=== PATIENT | male | born 1955 | race Caucasian/White ===

== ENCOUNTER 2022-12-28 10:26 | Emergency (ER) | payer OTHER, MEDICARE, MEDICAID ==
[2022-12-28] MEDS ORDERED: Sodium Chloride 0.9% 10 ML Syringe FLUSH PRN (10:41)
[2022-12-28 11:00] LABS: HEMATOCRIT 42.5 % (39.0-49.0); HEMOGLOBIN 14.3 g/dL (13.1-16.8); MEAN CORPUSCULAR HEMOGLOBIN 30.8 pg (28.2-33.3); MEAN CORPUSCULAR HGB CONC 33.6 g/dL (31.7-36.0); MEAN CORPUSCULAR VOLUME 91.4 fL (84.0-98.0); RED BLOOD CELL COUNT 4.65 M/uL (4.33-5.41); WHITE BLOOD CELL COUNT,WBC 7.2 K/uL (4.0-10.2)
[2022-12-28 11:01] LABS: BASOPHILS ABSOLUTE AUTO 0.02 K/uL (0.00-0.20); BASOPHILS PERCENT AUTO 0.3 % (0.0-2.0); EOSINOPHILS ABSOLUTE AUTO 0.01 K/uL (0.00-0.50); EOSINOPHILS PERCENT AUTO 0.1 % (0.0-5.0); LYMPHOCYTES ABSOLUTE AUTO 0.47 K/uL (0.50-3.50); LYMPHOCYTES PERCENT AUTO 6.6 % (10.0-50.0); MONOCYTES ABSOLUTE AUTO 0.52 K/uL (0.00-1.00); MONOCYTES PERCENT AUTO 7.3 % (2.0-14.0); NEUTROPHILS ABSOLUTE AUTO 6.13 K/uL (1.40-7.00); NEUTROPHILS PERCENT AUTO 85.7 % (45.0-80.0); PLATELET COUNT,PLT 216 K/uL (150-350)
[2022-12-28 11:28] LABS: ALBUMIN 3.5 g/dL (3.4-5.0); ANION GAP 7.6 meq/L (7-15); BILIRUBIN TOTAL 0.6 mg/dL (0.2-1.0); CALCIUM 8.6 mg/dL (8.5-10.1); CARBON DIOXIDE,CO2 30.4 mmol/L (21.0-32.0); CREATININE 0.87 mg/dL (0.51-1.17); EST CRCL DRUG DOSING (CG) 91.84 mL/min; POTASSIUM,K 3.6 mmol/L (3.5-5.1)
[2022-12-28] MEDS ORDERED: Sodium Chloride 0.9% 1,000 ML IV ONE (11:34)
[2022-12-28] MEDS ORDERED: Sodium Chloride 0.9% 500 ML IV SCH (11:45)
== END 2022-12-28 13:23 ==
LOC: LL.ED 10:26
DX: R55 Syncope and collapse (principal); E86.0 Dehydration
CPT/HCPCS: 36415; 71045; 80053; 82550; 84484; 85025; 93005; 93010; 99284; 99285; J7040